=== PATIENT | male | born 1950 | race Caucasian/White ===

== ENCOUNTER → 2024-02-26 07:25 | Outpatient (REF) | payer MEDICARE, SELFPAY ==
[2024-02-26] MEDS: LEXISCAN 0.4 MG IV (09:31)
== END ==
LOC: RCS 07:25
PROVIDERS: ATTENDING PHYSICIAN Family Medicine
DX: I44.7 Left bundle-branch block, unspecified (principal); R06.09 Other forms of dyspnea
CPT/HCPCS: 78452; 93017; A9500; J2785

== ENCOUNTER → 2024-05-08 14:52 | Outpatient (REF) | payer OTHER, SELFPAY | LOC: RAD 14:52 | PROVIDERS: ATTENDING PHYSICIAN Family Medicine; OTHER PHYSICIAN Ophthalmology; REFERRING PHYSICIAN Internal Medicine Cardiovascular Disease | DX: Z13.6 Encounter for screening for cardiovascular disorders (principal) | CPT/HCPCS: 75571 ==

== ENCOUNTER → 2024-07-17 11:19 | Outpatient (REF) | payer OTHER, SELFPAY | LOC: RAD 11:19 | PROVIDERS: ATTENDING PHYSICIAN Family Medicine | DX: M25.551 Pain in right hip (principal) | CPT/HCPCS: 73502 ==

== ENCOUNTER 2024-12-17 06:22 | Day surgery (SDC) | payer OTHER, SELFPAY | END 2024-12-17 13:30 | disposition home or self-care (01) | LOC: GI 06:22 | PROVIDERS: ATTENDING PHYSICIAN Internal Medicine; FAMILY PHYSICIAN Family Medicine | DX: K52.9 Noninfective gastroenteritis and colitis, unspecified (principal); K64.8 Other hemorrhoids; K63.3 Ulcer of intestine; K57.30 Diverticulosis of large intestine without perforation or abscess without bleeding; K63.89 Other specified diseases of intestine; D12.3 Benign neoplasm of transverse colon; K62.1 Rectal polyp | CPT/HCPCS: 45385; 45380; 88305 ==

== ENCOUNTER → 2025-07-09 14:14 | Outpatient (REF) | payer MEDICARE, OTHER, SELFPAY | LOC: RAD 14:14 | PROVIDERS: ATTENDING PHYSICIAN Family Medicine | DX: M54.6 Pain in thoracic spine (principal) | CPT/HCPCS: 72072; 72110 ==